=== PATIENT | male | born 1960 | race Caucasian/White ===

== ENCOUNTER 2021-10-08 18:20 | Emergency (ER) | payer OTHER ==
[2021-10-08 18:49] VITALS: BP 212/98; PULSE 68
[2021-10-08] MEDS ORDERED: Sodium Chloride 0.9% 10 ML Syringe FLUSH PRN (18:49)
[2021-10-08] MEDS ORDERED: Ondansetron 4 MG/2 ML SDV IVPUSH ONE (18:49)
[2021-10-08] MEDS ORDERED: HYDROmorphone 0.5 MG/0.5 ML Syringe IVPUSH ONE ×2 (18:54→19:57)
[2021-10-08] MEDS ORDERED: Sodium Chloride 0.9% 1,000 ML IV SCH (19:00)
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
[2021-10-08] MEDS ORDERED: Iopamidol 612 MG/ML 100 ML Bottle IVPUSH ONE (19:43)
[2021-10-08] MEDS ORDERED: Sodium Chloride 0.9% 10 ML Syringe FLUSH ONE (19:43)
[2021-10-08] MEDS ORDERED: Ketorolac 30 MG/ML SDV IVPUSH ONE (20:35)
--- NOTE | 2021-10-09 09:30 | CT ---
EXAM: CT ABDOMEN PELVIS WITH CONTRAST LOCATION: [facility] [employer] [place] DATE/TIME: 10/08/2021 7:29 PM INDICATION: Pain, vomiting. COMPARISON: None. TECHNIQUE: CT scan of the abdomen and pelvis was performed following injection of IV contrast. Multiplanar reformats were obtained. Dose reduction techniques were used. CONTRAST: Nes125 100 mL FINDINGS: LOWER CHEST: Normal. HEPATOBILIARY: Normal. PANCREAS: Normal. SPLEEN: Calcified granulomata. ADRENAL GLANDS: Normal. KIDNEYS/BLADDER: 3 mm stone in the distal left ureter with moderate left-sided hydronephrosis. 2 mm stone in the lower pole left kidney. Left perinephric fluid. 2 mm nonobstructing stone in the upper pole of the right kidney. BOWEL: Colonic diverticula without CT evidence for diverticulitis. LYMPH NODES: Normal. VASCULATURE: Unremarkable. PELVIC ORGANS: Normal. MUSCULOSKELETAL: Bilateral spondylolysis at the lumbosacral interspace with mild anterior subluxation L5 on S1. Lumbar degenerative change. Compression deformity T12. IMPRESSION: 1. 3 mm stone in the distal left ureter with moderate left-sided hydronephrosis. Left perinephric fluid and stranding. 2 mm stone within the lower pole left kidney. 2. 2 mm nonobstructing stone upper pole right kidney. 3. Previous granulomatous infection. 4. Colonic diverticula without CT evidence for diverticulitis. SIGNED BY: Michele Barney MD 10/08/2021 9:25 PM [id number]
== END 2021-10-08 21:47 | disposition home or self-care (01) ==
LOC: JD.ED 18:20
DX: N13.2 Hydronephrosis with renal and ureteral calculous obstruction (principal); Z79.899 Other long term (current) drug therapy
CPT/HCPCS: 36415; 74177; 80053; 81001; 83690; 83735; 85025; 86140; 96374; 96375; 96376; 99284; J1170; J1885; J2405; J7030; Q9967